=== PATIENT | male | born 1940 | race Caucasian/White ===

== ENCOUNTER 2020-01-01 18:18 | Emergency (ER) | payer OTHER ==
[2020-01-01] MEDS ORDERED: HYDROCODONE/APAP 5/325 MG TAB ONE (19:06)
--- NOTE | 2020-01-01 21:03 | ER ---
[facility] Name[facility] Flaco [facility] Age: 79 yrs Sex: Male : 1940 Arrival Date: 01/01/2020 Time: 18:38 Bed 14 Private MD: Diagnosis: Edema, unspecified-bilateral pedal edema Presentation: 12/31 18:40 Chief complaint: EMS states: "pt called reporting redness and swelling in ALTA legs. jd3 reports this is been going on for a long time, but getting worse over the last 2 days.". Coronavirus screen: At this time, the client does not indicate any symptoms associated with coronavirus-19. Ebola Screen: Patient negative for fever greater than or equal to 101.5 degrees Fahrenheit, and additional compatible Ebola Virus Disease symptoms. Initial Sepsis Screen: Does the patient meet any 2 criteria? No. Patient's initial sepsis screen is negative. Does the patient have a suspected source of infection? No. Patient's initial sepsis screen is negative. Risk Assessment: Do you want to hurt yourself or someone else? Patient reports no desire to harm self or others. Onset of symptoms was December 30, 2019. 18:40 Method Of Arrival: EMS: [facility] jd3 18:40 Acuity: ANTOLIN 3 jd3 Historical: - Allergies: 18:43 No Known Allergies; jd3 - PMHx: 18:43 Hypertension; COPD; jd3 - PSHx: 18:43 colon removal; polyps removed; hernia removed; jd3 - Immunization history:: Adult Immunizations unknown. - Social history:: Smoking status: unknown. Screenin:50 Abuse screen: Denies threats or abuse. Nutritional screening: No deficits noted. jd3 Tuberculosis screening: No symptoms or risk factors identified. Fall Risk Ambulatory Aid- None/Bed Rest/Nurse Assist (0 pts). Gait- Weak (10 pts.). Mental Status- Oriented to own ability (0 pts). Total Mg Fall Scale indicates No Risk (0-24 pts). Assessment: 18:49 General: Appears in no apparent distress. uncomfortable, Behavior is calm, cooperative, jd3 appropriate for age. Pain: Denies pain. Neuro: Level of Consciousness is awake, alert, obeys commands, Oriented to person, place, time, situation. Cardiovascular: Denies chest pain, Capillary refill < 3 seconds Patient's skin is warm and dry. Rhythm is irregular. Respiratory: Airway is patent Respiratory effort is even, unlabored, Respiratory pattern is regular, symmetrical, Denies cough, shortness of breath at rest. GI: No signs and/or symptoms were reported involving the gastrointestinal system. : No signs and/or symptoms were reported regarding the genitourinary system. EENT: No signs and/or symptoms were reported regarding the EENT system. Derm: Skin is intact, Skin is dry, Skin is normal, Skin temperature is warm. Musculoskeletal: Circulation, motion, and sensation intact. Range of motion: intact in all extremities. 19:50 Reassessment: Patient appears in no apparent distress at this time. Patient and/or jd3 family updated on plan of care and expected duration. Pain level reassessed. Patient is alert, oriented x 3, equal unlabored respirations, skin warm/dry/pink. 20:31 Reassessment: Patient appears in no apparent distress at this time. Patient and/or jd3 family updated on plan of care and expected duration. Pain level reassessed. Patient is alert, oriented x 3, equal unlabored respirations, skin warm/dry/pink. awaiting results and disposition. Vital Signs: 18:43 BP 124 / 74; Pulse 102; Resp 18 S; Temp 98.9(O); Pulse Ox 97% on R/A; Pain 0/10; jd3 19:50 BP 104 / 65; Pulse 102; Resp 17 S; Pulse Ox 96% on R/A; jd3 20:31 BP 107 / 78; Pulse 104; Resp 18 S; Pulse Ox 97% on R/A; jd3 21:54 BP 121 / 71; Pulse 94; Resp 17 S; Pulse Ox 96% on R/A; jd3 ED Course: 18:38 Patient arrived in ED. ca1 18:40 Flakito Webster RN is Primary Nurse. jd3 18:42 Triage completed. jd3 18:44 Arm band placed on. EKG completed in triage. Results shown to MD. jd3 18:45 Nick Isaacs NP is PHCP. pm1 18:45 Fredy Castellanos MD is Attending Physician. pm1 18:51 Patient has correct armband on for positive identification. Placed in gown. Bed in low jd3 position. Call light in reach. Side rails up X2. Adult w/ patient. campus monitor on. Pulse ox on. NIBP on. 20:06 Ultrasound completed. Patient tolerated well. Notified SUGAR PRESSER/RALPH piedra. sg3 21:46 Extrem Venous W Compression [place] US In Process Unspecified. EDMS 21:54 No provider procedures requiring assistance completed. Patient did not have IV access jd3 during this emergency room visit. Administered Medications: 18:56 Drug: Holmen 5 mg-325 mg 1 tabs Route: PO; jd3 19:50 Follow up: Response: No adverse reaction; RASS: Alert and Calm (0) jd3 Outcome: 21:02 Discharge ordered by MD. pm1 21:55 Discharged to home via wheelchair, with friend. jd3 21:55 Condition: stable 21:55 Discharge instructions given to patient, friend, Instructed on discharge instructions, follow up and referral plans. Demonstrated understanding of instructions, follow-up care. 21:57 Patient left the ED. jd3 22:06 Prescriptions given X Patient left prior to prescription given for Tramadol 50mg tab lp1 Q8h, x12 tablets; No number to contact patient Signatures: Dispatcher [employer] EDRI Eileen Carr RN RN lp1 Nick Isaacs NP SUGAR PRESSER pm1 Flakito Webster RN RN jd3 Ina Burns sg3 Aracely Salgado RN RN ca1
--- NOTE | 2020-01-01 21:03 | EDPHYS ---
Physician Documentation [facility] Name: Flaco Gil Age: 79 yrs Sex: Male : 1940 Arrival Date: 01/01/2020 Time: 18:38 Bed 14 Private MD: ED Physician Fredy Castellanos HPI: 12/31 19:03 This 79 yrs old Male presents to ER via EMS with complaints of Lower pm1 extermity swelling. 19:03 The patient presents with pain, that is chronic, swelling. The complaints affect the pm1 right leg and left leg. Context: resulted from an unknown cause, Worse with dependence and improved with elevating legs at night, the patient can fully bear weight, the patient is able to ambulate. Onset: The symptoms/episode began/occurred present for many years, reports worse the past few days because he has not been able to elevate his legs at night due to power issues at the house. Typically he is able to improve it on his won with soaking in epsom salts and elevating his legs. Modifying factors: The symptoms are alleviated by elevating leg, the symptoms are aggravated by having his feet down. Associated signs and symptoms: Pertinent negatives calf tenderness, fever, numbness, tingling, chest pain, shortness of breath. Treatment prior to arrival includes: no previous treatment. Severity of symptoms: in the emergency department the symptoms are actually worse. The patient has experienced similar episodes in the past, chronically. The patient has not recently seen a physician. Historical: - Allergies: 18:43 No Known Allergies; jd3 - PMHx: 18:43 Hypertension; COPD; jd3 - PSHx: 18:43 colon removal; polyps removed; hernia removed; jd3 - Immunization history:: Adult Immunizations unknown. - Social history:: Smoking status: unknown. ROS: 19:03 Constitutional: Negative for fever, chills, and weight loss, Neck: Negative for injury, pm1 pain, and swelling, Respiratory: Negative for shortness of breath, cough, wheezing, and pleuritic chest pain, Abdomen/GI: Negative for abdominal pain, nausea, vomiting, diarrhea, and constipation, Back: Negative for injury and pain. 19:03 MS/Extremity: Negative for injury and deformity, Skin: Negative for injury, rash, and discoloration, Neuro: Negative for headache, weakness, numbness, tingling, and seizure. 19:03 Cardiovascular: Positive for edema, bilateral lower extremities, Negative for palpitations. Exam: 19:03 Constitutional: This is a well developed, well nourished patient who is awake, alert, pm1 and in no acute distress. Head/Face: Normocephalic, atraumatic. 19:03 Back: No spinal tenderness. No costovertebral tenderness. Full range of motion. Skin: Warm, dry with normal turgor. Normal color with no rashes, no lesions, and no evidence of cellulitis. MS/ Extremity: Pulses equal, no cyanosis. Neurovascular intact. Full, normal range of motion. 19:03 Cardiovascular: Exam negative for acute changes, Rate: normal, Rhythm: regular, Pulses: no pulse deficits are appreciated, Edema: 2+ edema to level of left ankle, left foot, right ankle and right foot. 19:03 Respiratory: Exam negative for acute changes, the patient does not display signs of respiratory distress, Breath sounds: are clear throughout. 19:03 Neuro: Exam negative for acute changes, Orientation: is normal, Mentation: is normal, Motor: is normal. Vital Signs: 18:43 BP 124 / 74; Pulse 102; Resp 18 S; Temp 98.9(O); Pulse Ox 97% on R/A; Pain 0/10; jd3 19:50 BP 104 / 65; Pulse 102; Resp 17 S; Pulse Ox 96% on R/A; jd3 20:31 BP 107 / 78; Pulse 104; Resp 18 S; Pulse Ox 97% on R/A; jd3 21:54 BP 121 / 71; Pulse 94; Resp 17 S; Pulse Ox 96% on R/A; jd3 MDM: 18:51 Patient medically screened. pm1 21:01 Data reviewed: vital signs. Data interpreted: Pulse oximetry: on room air is 97 %. pm1 Interpretation: normal. Counseling: I had a detailed discussion with the patient and/or guardian regarding: the historical points, exam findings, and any diagnostic results supporting the discharge/admit diagnosis, the need for outpatient follow up, a family practitioner, to return to the emergency department if symptoms worsen or persist or if there are any questions or concerns that arise at home. 12/31 18:51 Order name: Extrem Venous W Compression Jaocb US pm1 Administered Medications: 18:56 Drug: Immaculata 5 mg-325 mg 1 tabs Route: PO; jd3 19:50 Follow up: Response: No adverse reaction; RASS: Alert and Calm (0) jd3 Disposition: 01/01/20 21:02 Discharged to Home. Impression: Edema, unspecified - bilateral pedal edema. - Condition is Stable. - Discharge Instructions: Lymphedema, Peripheral Edema. - Prescriptions for Tramadol 50 mg Oral Tablet - take 1 tablet by ORAL route every 8 hours as needed; 12 tablet. - Medication Reconciliation Form, Thank You Letter, Antibiotic Education, Prescription Opioid Use form. - Follow up: Emergency Department; When: As needed; Reason: Worsening of condition. Follow up: Private Physician; When: 2 - 3 days; Reason: Recheck today's complaints, Continuance of care, Re-evaluation by your physician. - Problem is new. - Symptoms have improved. Addendum: 01/03/2020 07:01 Co-signature as Attending Physician, Fredy Castellanos MD I agree with the assessment and k dr plan of care. Signatures: Dispatcher [employer] EDMS Fredy Castellanos MD MD [facility] Nick Isaacs NP BOTTOM CAGER pm1 Flakito Webster RN RN jd3 Corrections: (The following items were deleted from the chart) 12/31 21:57 21:02 01/01/2020 21:02 Discharged to Home. Impression: Edema, unspecified - bilateral jd3 pedal edema. Condition is Stable. Forms are Medication Reconciliation Form, Thank You Letter, Antibiotic Education, Prescription Opioid Use. Follow up: Emergency Department; When: As needed; Reason: Worsening of condition. Follow up: Private Physician; When: 2 - 3 days; Reason: Recheck today's complaints, Continuance of care, Re-evaluation by your physician. Problem is new. Symptoms have improved. pm1
--- NOTE | 2020-01-01 21:59 | RAD REPORT ---
EXAM DESCRIPTION: US - Extrem Venous W Compress Jacob - 01/01/2020 9:46 pm CLINICAL HISTORY: Pain;Swelling Bilateral leg edema and swelling. COMPARISON: EXT VENOUS W COMPRESSION JACOB dated 10/14/2013 TECHNIQUE: Real-time sonographic interrogation of the left and right lower extremity deep venous sys tems was performed. FINDINGS: Normal compressibility, flow augmentation, phasic flow and spontaneous flow is identified in both the left and right lower extremity deep venous systems. 3 cm left popliteal cyst. IMPRESSION: No sonographic evidence of left or right lower extremity deep venous thrombosis.
[2020-01-01 22:05] VITALS: TEMP 98.9
[2020-01-01 22:49] VITALS: BP 121/71; O2SAT 96
== END 2020-01-01 21:57 | disposition home or self-care (01) ==
LOC: ER 18:18
DX: R60.9 Edema, unspecified (principal); I10 Essential (primary) hypertension
CPT/HCPCS: 93005; 93970; 99284

== ENCOUNTER 2020-02-01 09:52 | Observation (INO) | payer OTHER ==
[2020-02-01 10:41] LABS: Absolute Lymphocytes (CBC) 1.7 K/uL (0.7-4.9); Basophils % 0.6 % (0-1.3); Hematocrit 35.4 % (39.6-49.0); Lymphocytes % 21.3 % (15.3-44.8); MPV 8.1 fL (7.6-11.3); RBC Red Blood Cell Count 3.56 M/uL (4.33-5.43)
[2020-02-01 10:43] LABS: Protime INR 1.2
[2020-02-01] MEDS ORDERED: NA CHLORIDE 0.9% 500 ML ONE (10:46)
--- NOTE | 2020-02-01 11:09 | RAD REPORT ---
EXAM DESCRIPTION: CT - Head C Spine Cap Hilton Sanchez - 02/01/2020 10:38 am CLINICAL HISTORY: Head and neck injury with chest and abdominal pain status post fall. Head and neck pain . TECHNIQUE: Computed axial tomography of the head and cervical spine was obtained Computed axial tomography of the chest, abdomen and pelvis was obtained. 100 cc Isovue-300 was given intravenously coronal and sagittal reconstruction was performed. All CT scans are performed using dose optimization technique as appropriate and may include automated exposure control or mA/KV adjustment according to patient size. COMPARISON: None FINDINGS: An intracranial bleed is not seen. The ventricles are normal in caliber. An extra-axial fl uid collection is not noted. Mild low-density areas within periventricular, deep and subcortical whit e matter likely ischemic changes secondary to small vessel disease A cervical fracture is not seen. No dislocation is seen. Ill-defined density is present within the ph arynx which may viscous secretions A mediastinal hematoma is not noted. A small to moderate bilateral pleural effusions. A lung contusio n is not seen. Paraseptal emphysema The liver, spleen, pancreas, adrenals, kidneys and bladder do not demonstrate a traumatic injury Prostate gland is enlarged. Left hip arthroplasty. Artifact from the prosthesis limits evaluation por tions of the pelvis. Cholelithiasis. Gallbladder is distended. Periaortic/caval lymphadenopathy. Lymph nodes vary in size from 1-2 centimeters. Lymph nodes are pres ent within the iliac chain. Diffuse edema is present the subcutaneous tissues. Bones have a diffusely heterogeneous and diminished density. . IMPRESSION: 1. No acute intracranial abnormality is seen 2. A cervical fracture is not visualized. If the patient continues have symptoms to suggest intracran ial/spinal cord pathology then MRI would be recommended. 3. No traumatic injury involving the chest, abdomen or pelvis is seen. 4. Mild to moderate retroperitoneal and pelvic lymphadenopathy may represent metastatic disease or ly mphoma 5. Bones have a diffusely heterogeneous and diminished density which may indicate metastatic disease or a metabolic process 6. Cholelithiasis with gallbladder distention 7. Enlargement of the prostate gland could represent hypertrophy or neoplasm. The evaluation is subop timal secondary to artifact from a left hip prosthesis
--- NOTE | 2020-02-01 11:22 | RAD REPORT ---
EXAM DESCRIPTION: Deon Single View02/01/2020 10:23 am CLINICAL HISTORY: Chest pain COMPARISON: 2016 FINDINGS: Small to moderate bilateral pleural effusions. Lungs are hyperaerated. Upper lobes are cl ear. Heart is normal size
[2020-02-01 11:25] LABS: ALT/SGPT 40 U/L (12-78); AST/SGOT 73 U/L (15-37); Albumin 2.1 g/dL (3.4-5.0); Alkaline Phosphatase 949 U/L (45-117); BUN Blood Urea Nitrogen 16 mg/dL (7-18); Bicarbonate 20 mmol/L (21-32); Bilirubin Direct 0.3 mg/dL (0-0.2); Bilirubin Total 0.7 mg/dL (0.2-1.0); Creatine Phosphokinase 159 U/L (39-308); Glucose Level 74 mg/dL (74-106); NT PRO-BNP 1704 pg/mL (<450); Potassium 4.5 mmol/L (3.5-5.1); Protein, Total 5.7 g/dL (6.4-8.2); Sodium Level 149 mmol/L (136-145); Troponin (Emerg Dept Use Only) < 0.02 ng/mL (0.0-0.045)
--- NOTE | 2020-02-01 12:10 | EDPHYS ---
Physician Documentation [facility] Name: Flaco Gil Age: 79 yrs Sex: Male : 1940 Arrival Date: 02/01/2020 Time: 09:55 Bed 4 Private MD: ED Physician Henri Waters HPI: 01/31 10:05 This 79 yrs old Male presents to ER via EMS with complaints of Found on the cp ground. 10:05 Details of fall: The patient fell from an upright position. cp 10:05 Onset: The symptoms/episode began/occurred at an unknown time. possibly 3 days ago. cp Associated injuries: The patient sustained no obvious injuries. Historical: - Allergies: 10:30 No Known Allergies; sv - PMHx: 10:29 COPD; Hypertension; sv - PSHx: 10:29 colon removal; polyps removed; hernia removed; sv - Immunization history:: Adult Immunizations unknown. - Social history:: Smoking status: . ROS: 10:10 Constitutional: Positive for poor PO intake, Negative for fever. cp 10:10 Cardiovascular: Negative for chest pain. cp 10:10 Respiratory: Negative for cough, shortness of breath, wheezing. 10:10 Abdomen/GI: Negative for abdominal pain. 10:10 Neuro: Negative for altered mental status. 10:10 All other systems are negative. Exam: 10:15 Constitutional: The patient appears in no acute distress, alert, awake, cp non-diaphoretic, non-toxic, well developed, frail. 10:15 Head/Face: Normocephalic, atraumatic. cp 10:15 Eyes: Periorbital structures: appear normal, Pupils: equal, round, and reactive to light and accomodation, Extraocular movements: intact throughout, Conjunctiva: normal, no exudate, no injection, Sclera: no appreciated abnormality, Lids and lashes: appear normal, bilaterally. 10:15 ENT: External ear(s): are unremarkable, Ear canal(s): are normal, clear, TM's: dullness, bilaterally, Nose: is normal, Mouth: Lips: dry, Oral mucosa: dry, Posterior pharynx: Airway: no evidence of obstruction, patent. 10:15 Neck: C-spine: vertebral tenderness, is not appreciated, crepitus, is not appreciated, ROM/movement: is normal, is supple, without pain, no range of motions limitations, no nuchal rigidity. 10:15 Chest/axilla: Inspection: normal, Palpation: crepitus, is not appreciated, tenderness, is not appreciated. 10:15 Cardiovascular: Rate: tachycardic, Rhythm: regular, Edema: pedal edema, that is very mild, JVD: is not appreciated. 10:15 Respiratory: the patient does not display signs of respiratory distress, Respirations: normal, no use of accessory muscles, no retractions, labored breathing, is not present, Breath sounds: are clear throughout, no decreased breath sounds, no stridor, no wheezing. 10:15 Abdomen/GI: Inspection: abdomen appears normal, Bowel sounds: active, all quadrants, Palpation: abdomen is soft and non-tender, in all quadrants, rebound tenderness, is not appreciated, voluntary guarding, is not appreciated. 10:15 Back: pain, is absent. 10:15 Neuro: Orientation: to person, place, situation, Mentation: able to follow commands, slow to respond, Motor: moves all fours, Sensation: no obvious gross deficits. Vital Signs: 09:48 BP 126 / 95; Pulse 112; Resp 18; Temp 97.5(O); Pulse Ox 98% on R/A; Weight 54.43 kg tw2 (R); Height 5 ft. 9 in. (175.26 cm); 10:07 BP 125 / 88; Pulse 104; Resp 16; Pulse Ox 95% ; sv 10:52 BP 131 / 84; Pulse 101 MON; Resp 17; Pulse Ox 96% on R/A; sv 11:29 BP 111 / 75; Pulse 97 MON; Resp 16; Pulse Ox 96% on R/A; sv 12:30 BP 131 / 83; Pulse 102; Resp 22; Pulse Ox 96% on R/A; sv 13:14 BP 124 / 86; Pulse 107; Resp 25; Pulse Ox 97% ; sv 14:09 BP 135 / 65; Pulse 88; Resp 20; Pulse Ox 96% on R/A; sv 15:00 BP 119 / 83; Pulse 100 MON; Resp 18; Temp 98; Pulse Ox 96% on R/A; sv 09:48 Body Mass Index 17.72 (54.43 kg, 175.26 cm) tw2 10:52 Sinus tachycardia sv 11:29 Sinus Rhythm sv 15:00 Sinus tachycardia sv MDM: 10:16 Patient medically screened. cp 12:05 Data reviewed: vital signs, nurses notes, lab test result(s), radiologic studies, CT cp scan, and as a result, I will admit patient. 12:05 Physician consultation: Gregg Santos was called at 12:05, was contacted at 12:05, regarding admission, to the telemetry unit. patient's condition. 01/31 10:03 Order name: Basic Metabolic Panel; Complete Time: 11:28 11 11:28 Interpretation: Normal except: NA 149; CL 111; CO2 20; GFR 88. 01/31 10: Order name: CBC with Diff; Complete Time: 11:24 01/31 11:25 Interpretation: Normal except: RBC 3.56; HGB 12.3; HCT 35.4; RDW 17.3. 01/31 10:03 Order name: LFT's; Complete Time: 11:28 01/31 11:28 Interpretation: Normal except: AST 73; ALK 949; BILID 0.3; TP 5.7; ALB 2.1; GLOB 3.6; cp A/G 0.6. 01/31 10:03 Order name: Magnesium; Complete Time: 11:28 01/31 10:03 Order name: NT PRO-BNP; Complete Time: 11:28 01/31 10:03 Order name: PT-INR; Complete Time: 11:24 01/31 10:03 Order name: Troponin (emerg Dept Use Only); Complete Time: 11:28 01/31 10:03 Order name: CK; Complete Time: 11:28 01/31 10:03 Order name: Ptt, Activated; Complete Time: 11:24 01/31 10:03 Order name: UDS; Complete Time: 14:16 cp 01/31 10:03 Order name: ETOH Level; Complete Time: 11:24 cp 01/31 10:03 Order name: Lactate; Complete Time: 11:24 cp 01/31 10:03 Order name: Procalcitonin; Complete Time: 12:00 01/31 10:03 Order name: Blood Culture Adult (2) cp 01/31 10:03 Order name: XRAY Chest (1 view); Complete Time: 11:24 01/31 11:26 Interpretation: Report review. cp 01/31 10:03 Order name: EKG; Complete Time: 10:04 cp 01/31 10:03 Order name: Cardiac monitoring; Complete Time: 10:16 cp 01/31 10:03 Order name: EKG - Nurse/Tech; Complete Time: 10:16 cp 01/31 10:03 Order name: IV Saline Lock; Complete Time: 10:30 cp 01/31 10:03 Order name: Labs collected and sent; Complete Time: 10:30 cp 01/31 10:03 Order name: O2 Per Protocol; Complete Time: 10:16 cp 01/31 10:03 Order name: O2 Sat Monitoring; Complete Time: 10:16 cp 01/31 10:03 Order name: CT Traumagram (Head C Spine CAP W Con); Complete Time: 11:24 cp 01/31 11:28 Order name: Urine Microscopic Only; Complete Time: 14:16 EDMS 01/31 12:51 Order name: Urine Dipstick--Ancillary (enter results); Complete Time: 14:16 bd 01/31 14:16 Interpretation: Normal except: UKET 4+; UBLD TRACE. cp 01/31 13:08 Order name: Diet Mech. Soft (ground); Complete Time: 13:08 sv 01/31 13:23 Order name: CREATININE WHOLE BLOOD; Complete Time: 14:16 EDMS 01/31 11:27 Order name: Urine Dipstick-Ancillary (obtain specimen); Complete Time: 12:48 cp 01/31 12:48 Order name: Wade; Complete Time: 12:48 sv Administered Medications: 10:50 Drug: NS 0.9% 500 ml Route: IV; Rate: 500 ml/hr; Site: right antecubital; tw2 12:00 Follow up: Response: No adverse reaction; IV Status: Completed infusion; IV Intake: sv 500ml 15:19 Drug: NS 0.9% 1000 ml Route: IV; Rate: 75 ml/hr; Site: right antecubital; tw2 15:20 Follow up: Response: No adverse reaction; IV Status: Infusion continued upon admission sv Disposition: 13:00 Chart complete. 02/01 06:02 Co-signature as Attending Physician, Henri Waters MD. rn Disposition: 02/01/20 12:09 Hospitalization ordered by Grgeg Santos for Observation. Preliminary diagnosis are Fall on same level from slipping, tripping and stumbling, Dehydration. - Bed requested for Telemetry/MedSurg (observation). - Status is Observation. sv - Condition is Fair. - Problem is new. - Symptoms have improved. Signatures: Dispatcher [employer] EDMS Sydnie Higuera bd Valorie Caballero RN RN sv Henri Waters MD MD rn Page, Corey, PA PA cp Gwendolyn Anguiano RN RN tw2 Corrections: (The following items were deleted from the chart) 01/31 11:28 11:28 Normal except: AST 73; ALK 949; BILID 0.3; TP 5.7; ALB 2.1; GLOB 3.6. cp cp 11:35 11:28 Urine Microscopic Only ordered. EDMS EDMS 12:48 11:52 Wade ordered. cp sv 14:47 12:09 Hospitalization Ordered by Gregg Santos for Observation. Preliminary diagnosis bd is Fall on same level from slipping, tripping and stumbling; Dehydration. Bed requested for Telemetry/MedSurg (observation). Status is Observation. Condition is Fair. Problem is new. Symptoms have improved. cp 15:31 14:47 02/01/2020 12:09 Hospitalization Ordered by Gregg Santos for Observation. sv Preliminary diagnosis is Fall on same level from slipping, tripping and stumbling; Dehydration. Bed requested for Telemetry/MedSurg (observation). Status is Observation. Condition is Fair. Problem is new. Symptoms have improved. bd 02/01 14:20 01/30 10:05 This 79 yrs old Male presents to ER via EMS with complaints of cp Found on the ground. cp
--- NOTE | 2020-02-01 12:10 | ER ---
Nurse's Notes [facility] Name: Flaco Gil Age: 79 yrs Sex: Male : 1940 Arrival Date: 02/01/2020 Time: 09:55 Bed 4 Private MD: Diagnosis: Fall on same level from slipping, tripping and stumbling;Dehydration Presentation: 01/31 09:55 Chief complaint: EMS states: called out by PD, they did a welfare check on him and sv found him laying on the ground at home, for about the past 3 days. Pt had trash and empty beer cases laying all around the house. Coronavirus screen: Client denies travel out of the [place] in the last 14 days. At this time, the client does not indicate any symptoms associated with coronavirus-19. Ebola Screen: No symptoms or risks identified at this time. 09:55 Method Of Arrival: EMS: [facility] sv 10:07 Initial Sepsis Screen: Does the patient meet any 2 criteria? HR > 90 bpm. No. Patient's sv initial sepsis screen is negative. Does the patient have a suspected source of infection? No. Patient's initial sepsis screen is negative. Risk Assessment: Do you want to hurt yourself or someone else? Patient reports no desire to harm self or others. Onset of symptoms was January 30, 2020. 10:12 Acuity: ANTOLIN 2 sv Triage Assessment: 09:55 General: Appears in no apparent distress. uncomfortable, slender, unkempt, sv malnourished, Behavior is calm, cooperative, appropriate for age. General: Pt noted to be covered in dried feces with no clothes on.. Pain: Denies pain. Neuro: Level of Consciousness is awake, alert, obeys commands, Oriented to person, place, time, situation, Moves all extremities. Full function Speech is normal, Facial symmetry appears normal. Cardiovascular: Denies chest pain, Capillary refill is > 3 seconds is sluggish in bilateral fingers toes Patient's skin is warm and dry. Pulses are palpable in right radial artery and left radial artery Rhythm is sinus tachycardia. Respiratory: Airway is patent Respiratory effort is even, unlabored, Respiratory pattern is regular, symmetrical. GI: Abdomen is flat. : Swelling noted at urinary meatus. Derm: Skin is normal, open area noted to the left cheek, scabbed area noted to the posterior right calf area with no drainage. Decubitus located on right hip(s) is stage III is draining none noted. Musculoskeletal: Range of motion: intact in all extremities, Swelling present in right foot and left foot. Historical: - Allergies: 10:30 No Known Allergies; sv - PMHx: 10:29 COPD; Hypertension; sv - PSHx: 10:29 colon removal; polyps removed; hernia removed; sv - Immunization history:: Adult Immunizations unknown. - Social history:: Smoking status: . Screenin:50 Abuse screen: Denies threats or abuse. Denies injuries from another. Nutritional sv screening: No deficits noted. Tuberculosis screening: No symptoms or risk factors identified. Fall Risk No fall in past 12 months (0 pts). No secondary diagnosis (0 pts). IV access (20 points). Ambulatory Aid- None/Bed Rest/Nurse Assist (0 pts). Gait- Normal/Bed Rest/Wheelchair (0 pts) Mental Status- Overestimates/Forgets Limitations (15 pts.). Total Mg Fall Scale indicates Low Risk Score (25-44 pts). Fall prevention measures have been instituted. Side Rails Up X 2 Placed close to Nursing Station Frequent Obs/Assesments occuring As available Patient and Family Educated on Fall Prevention Program and strategies. Assessment: 10:00 Reassessment: Bed bath given to pt from head to toe. Clean gown placed on pt. Warm sv blankets placed on him as well. 10:49 Reassessment: Patient appears in no apparent distress at this time. No changes from sv previously documented assessment. Patient and/or family updated on plan of care and expected duration. Pain level reassessed. Patient is alert, oriented x 3, equal unlabored respirations, skin warm/dry/pink. 11:47 Reassessment: Patient appears in no apparent distress at this time. Patient and/or sv family updated on plan of care and expected duration. Pain level reassessed. Patient is alert, oriented x 3, equal unlabored respirations, skin warm/dry/pink. 12:29 Reassessment: Dr Santos at the bedside. sv 12:49 Reassessment: Patient appears in no apparent distress at this time. No changes from sv previously documented assessment. Patient and/or family updated on plan of care and expected duration. Pain level reassessed. Patient is alert, oriented x 3, equal unlabored respirations, skin warm/dry/pink. 14:00 Reassessment: Patient appears in no apparent distress at this time. No changes from sv previously documented assessment. Patient and/or family updated on plan of care and expected duration. Pain level reassessed. Patient is alert, oriented x 3, equal unlabored respirations, skin warm/dry/pink. 15:00 Reassessment: Patient appears in no apparent distress at this time. No changes from sv previously documented assessment. Patient and/or family updated on plan of care and expected duration. Pain level reassessed. Patient is alert, oriented x 3, equal unlabored respirations, skin warm/dry/pink. Vital Signs: 09:48 BP 126 / 95; Pulse 112; Resp 18; Temp 97.5(O); Pulse Ox 98% on R/A; Weight 54.43 kg tw2 (R); Height 5 ft. 9 in. (175.26 cm); 10:07 BP 125 / 88; Pulse 104; Resp 16; Pulse Ox 95% ; sv 10:52 BP 131 / 84; Pulse 101 MON; Resp 17; Pulse Ox 96% on R/A; sv 11:29 BP 111 / 75; Pulse 97 MON; Resp 16; Pulse Ox 96% on R/A; sv 12:30 BP 131 / 83; Pulse 102; Resp 22; Pulse Ox 96% on R/A; sv 13:14 BP 124 / 86; Pulse 107; Resp 25; Pulse Ox 97% ; sv 14:09 BP 135 / 65; Pulse 88; Resp 20; Pulse Ox 96% on R/A; sv 15:00 BP 119 / 83; Pulse 100 MON; Resp 18; Temp 98; Pulse Ox 96% on R/A; sv 09:48 Body Mass Index 17.72 (54.43 kg, 175.26 cm) tw2 10:52 Sinus tachycardia sv 11:29 Sinus Rhythm sv 15:00 Sinus tachycardia sv ED Course: 09:55 Patient arrived in ED. aa5 09:55 Nathan Alexander PA is PHCP. cp 09:55 Henri Waters MD is Attending Physician. cp 09:55 transmission maintenance supervisor on. Pulse ox on. NIBP on. sv 09:55 Arm band placed on. tw2 10:10 First set of blood cultures drawn by mi. sv 10:12 Valorie Caballero, RN is Primary Nurse. sv 10:12 Triage completed. sv 10:15 Warm blanket given. Pillow given. Bath given. Cleaned of incontinence. Linen changed. mt 10:15 Patient has correct armband on for positive identification. Placed in gown. Bed in low sv position. Call light in reach. Side rails up X2. 10:22 contact info, [phone] or [phone]. bd 10:23 XRAY Chest (1 view) In Process Unspecified. EDMS 10:25 Second set of blood cultures drawn by me. Inserted saline lock: 20 gauge in right sv antecubital area, using aseptic technique. Blood collected. Flushed right antecubital with 5 ml normal saline. 10:[address] via stretcher. sv 10:39 CT Traumagram (Head C Spine CAP W Con) In Process Unspecified. EDMS 10:42 CT completed. Patient tolerated procedure well. Patient moved back from CT. sj 10:49 Patient moved back from [address]. sv 11:09 lemon glycerin swabs given until patient can eat or drink. mt 12:09 Gregg Santos is Hospitalizing Provider. cp 12:48 Wade cath inserted, using sterile technique, 16 Fr., by mi, balloon inflated, to sv gravity drainage, urine specimen collected. returned clear yellow urine. Patient tolerated well. 14:47 Adult Protective Services Ina [email or web address]-[phone]. bd 15:20 No provider procedures requiring assistance completed. Patient admitted, IV remains in sv place. intact. Administered Medications: 10:50 Drug: NS 0.9% 500 ml Route: IV; Rate: 500 ml/hr; Site: right antecubital; tw2 12:00 Follow up: Response: No adverse reaction; IV Status: Completed infusion; IV Intake: sv 500ml 15:19 Drug: NS 0.9% 1000 ml Route: IV; Rate: 75 ml/hr; Site: right antecubital; tw2 15:20 Follow up: Response: No adverse reaction; IV Status: Infusion continued upon admission sv Intake: 12:00 IV: 500ml; Total: 500ml. sv Outcome: 12:09 Decision to Hospitalize by Provider. cp 15:19 Admitted to [facility] accompanied by tech, via stretcher, room 205, with chart, Report sv called to Lizett DAILEY 15:19 Condition: stable 15:19 Instructed on the need for admit. 15:31 Patient left the ED. sv Signatures: Dispatcher [employer] EDMS Sydnie Higuera Stephanie RN RN Shavonne Montaño Audri RN RN aa5 Nathan Alexander PA PA cp Wise, Tara RN RN tw2 Sumanth [facility] Corrections: (The following items were deleted from the chart) 10:13 09:48 BP 126 / 95; Pulse 112bpm; Resp 18bpm; Pulse Ox 98% RA; Temp 97.5F Oral; tw2 tw2
[2020-02-01 12:55] LABS: Urine Blood TRACE (NEG); Urine Glucose NEGATIVE (NEG); Urine Protein NEGATIVE (NEG); Urine Specific Gravity 1.015 (1.005-1.030)
[2020-02-01 13:49] LABS: Barbiturates NEGATIVE (NEGATIVE); Benzodiazepines NEGATIVE (NEGATIVE); Cocaine NEGATIVE (NEGATIVE); METHAMPHETAM NEGATIVE (NEGATIVE); Methadone NEGATIVE (NEGATIVE); Opiates NEGATIVE (NEGATIVE); Phencyclidine NEGATIVE (NEGATIVE); THC Cannibis NEGATIVE (NEGATIVE)
[2020-02-01 13:55] LABS: Urine Bacteria NONE SEEN /HPF (NONE SEEN); Urine Culture Reflex Order NOT NEEDED; Urine Mucus LIGHT /HPF (NONE SEEN); Urine RBC <5 /HPF (NONE SEEN)
[2020-02-01] MEDS ORDERED: NA CHLORIDE 0.9% 1,000 ML ONE (15:29)
[2020-02-01] MEDS ORDERED: ACETAMINOPHEN 500 MG TAB PO PRN (16:05)
[2020-02-01] MEDS ORDERED: ONDANSETRON 4 MG/2 ML VIAL IV PRN (16:05)
[2020-02-01] MEDS ORDERED: ALBUTEROL 2.5 MG/3 ML NEB SOL NEB PRN (16:05)
[2020-02-01] MEDS: NACHLORIDE 0.45% 1,000 ML IV SCH (16:05)
--- NOTE | 2020-02-01 16:09 | P.HP ---
Certification for Inpatient Patient admitted to: Inpatient With expected LOS: >2 Midnights Practitioner: I am a practitioner with admitting privileges, knowledge of patient current condition, hospital course, and medical plan of care. Services: Services provided to patient in accordance with Admission requirements found in Title 42 Section 412.3 of the Code of Federal Regulations Patient History Date of Service: 02/01/20 Reason for admission: Fall History of Present Illness: 79-year-old gentleman with a history of chronic lower extremity lymphedema and COPD was brought to the emergency department because he was found on the floor at home lying in his stool and urine. Patient stated he slipped and fell and could not get up. He stated he was on the floor for about 3 day until he was found by his neighbor who did her wellness check on him. Patient denies any pain. He sustained a bruise to the right hip area. He was reporting of increased lower extremity swelling. He denied any shortness of breath or COPD flare. He was oriented to place and person but not to time. His blood work in the ED revealed hypernatremia and elevated ALP. CT chest, abdomen, and pelvis demonstrated bilateral pleural effusion and cholelithiasis with distended gallbladder. No gallbladder wall thickening to suggest cholecystitis. Patient started on IV fluids and admitted for further management. Allergies No Known Allergies Allergy (Verified 02/01/20 16:05) - Past Medical/Surgical History Diabetic: No -: Diverticulosis -: Tobacco abuse -: copd -: diverticulitis -: left hip fx -: Chronic lower extremity lymphedema -: colon resection due to diverticulitis -: hernia repair -: yolis eye lens replaced -: R ankle Fx with pins to repair -: L hip sx Psychosocial/ Personal History: . Children-2, Retired-real estate - Family History Mother -: Hypertension - Social History Alcohol use: Yes CD- Drugs: No Caffeine use: Yes Review of Systems Other: Patient denied any fever, any dysuria, or chest pain or palpitation. He denies shortness of breath. He denies abdominal pain or diarrhea or nausea or vomiting. Except as documented, all other systems reviewed and negative. Physical Examination - Physical Exam General: Oriented x2, Other (unkempt, cachetic) HEENT: Other (Dry oral mucosa.) Neck: Supple, JVD not distended Respiratory: Clear to auscultation bilaterally, Normal air movement Cardiovascular: Regular rate/rhythm, Normal S1 S2, Edema (Bilateral feet) Gastrointestinal: Normal bowel sounds, Soft and benign, Non-distended Musculoskeletal: Swelling (Bilateral feet) Integumentary: Other (Abrasion- right hip) Neurological: Normal strength at 5/5 x4 extr, Cranial nerves 3-12 intact External genitalia: Edema (penis) - Studies Laboratory Data (last 24 hrs) 02/01/20 10:25: PT 14.1 H, INR 1.20, APTT 24.8 02/01/20 10:25: WBC 8.1, Hgb 12.3 L, Hct 35.4 L, Plt Count 234 02/01/20 10:25: Sodium 149 H, Potassium 4.5, BUN 16, Creatinine 0.84, Glucose 74, Magnesium 2.0, Total Bilirubin 0.7, AST 73 H, ALT 40, Alkaline Phosphatase 949 H Assessment and Plan - Problems (Diagnosis) (1) Hypernatremia Current Visit: Yes Status: Acute (2) Asthenia Current Visit: Yes Status: Acute (3) Severe protein-calorie malnutrition Current Visit: Yes Status: Acute (4) Liver enzyme elevation Current Visit: Yes Status: Acute (5) COPD (chronic obstructive pulmonary disease) Current Visit: Yes Status: Acute (6) Chronic acquired lymphedema Current Visit: Yes Status: Acute (7) Bilateral pleural effusion Current Visit: Yes Status: Acute - Plan Admit to the medical floor. Hydrate with IV half-normal saline Monitor BMP. UA with no evidence of UTI. No indication for antibiotics at this time. Feeding as tolerated. Obtain right upper quadrant sonogram to further evaluate the distended gallbladder and a biliary tree. Consult to PT and OT Consult to social work for discharge planning. Wound care. - Advance Directives Does patient have a Living Will: No Does patient have a Durable POA for Healthcare: Yes
[2020-02-01] MEDS: ENOXAPARIN 40 MG/0.4 ML SQ SCH (17:09)
[2020-02-01 18:03] VITALS: BMI 23.6
--- NOTE | 2020-02-01 19:43 | RAD REPORT ---
EXAM DESCRIPTION: US - Liver Only - 02/01/2020 7:03 pm CLINICAL HISTORY: Distended gall bladder, elevated ALP. COMPARISON: Chest Single View dated 02/01/2020 TECHNIQUE: Sonographic evaluation of the right upper quadrant was performed as a dedicated liver ult rasound study. FINDINGS: Liver size is normal. No capsule nodularity or focal liver parenchymal lesion. Fatty infil tration is not evident. No diffuse liver parenchymal abnormality seen. Doppler evaluation shows no po rtal vein abnormality. Liver is estimated 12-13 cm in length. Spleen is 7 cm. No focal splenic abnormality seen. Cholelithiasis is present. Acute cholecystitis is not suspected. Bilateral pleural effusions are present not fully assessed on this study. IMPRESSION: No hepatomegaly or focal liver finding. No splenomegaly or focal splenic finding. Cholelithiasis.
[2020-02-01] MEDS ORDERED: INFLUENZA VACCINE (for 3y+) 0.5 ML DOSE IMVAC ONE (20:00)
[2020-02-01] MEDS ORDERED: PNEUMOCOCCAL VACCINE 0.5 ML IMVAC ONE (20:00)
[2020-02-02] MEDS: NACHLORIDE 0.45% 1,000 ML IV SCH (00:10)
[2020-02-02] MEDS ORDERED: IPRATROPIUM BROM 0.5MG/2.5ML NEB PRN (02:06)
[2020-02-02] MEDS ORDERED: ALBUTEROL 2.5 MG/3 ML NEB SOL NEB PRN (02:09)
[2020-02-02 04:25] LABS: Protime INR 1.23
[2020-02-02 05:15] LABS: Absolute Lymphocytes (CBC) 1.4 K/uL (0.7-4.9); Basophils % 0.3 % (0-1.3); Hematocrit 29.6 % (39.6-49.0); Lymphocytes % 15.7 % (15.3-44.8); MPV 9.2 fL (7.6-11.3); RBC Red Blood Cell Count 2.95 M/uL (4.33-5.43)
[2020-02-02 05:34] LABS: Albumin 1.8 g/dL (3.4-5.0); Bilirubin Total 0.4 mg/dL (0.2-1.0); Magnesium 1.9 mg/dL (1.8-2.4); Phosphorus 2.7 mg/dL (2.5-4.9); Potassium 3.9 mmol/L (3.5-5.1); Protein, Total 4.7 g/dL (6.4-8.2); Thyroid Stimulating Hormone 2.49 uIU/mL (0.360-3.740)
--- NOTE | 2020-02-02 07:17 | EKG ---
Test Date: 2020-02-01 Test Time: 09:52:24 Lab Coordinator: SHU MEASUREMENT RESULTS: Intervals: Rate: 98 DC: 194 QRSD: 58 QT: 408 QTc: 520 [place]: P: 22 DC: 194 QRS: 51 T: 194 INTERPRETIVE STATEMENTS: Sinus rhythm with occasional and consecutive premature ventricular complexes and fusion complexes Right atrial enlargement Low voltage QRS ST & T wave abnormality, consider inferolateral ischemia Prolonged QT Abnormal ECG Compared to ECG 01/01/2020 18:34:43 Fusion complex(es) now present Ventricular premature complex(es) now present Atrial abnormality now present ST (T wave) deviation now present Possible ischemia now present Prolonged QT interval now present Electronically Signed On 02-02-20 07:16:12 CLIMATOLOGY TEACHER by Eduardo Pacheco
[2020-02-02] MEDS: ENOXAPARIN 40 MG/0.4 ML SQ SCH (08:09)
[2020-02-02] MEDS ORDERED: POTASSIUM 25 MEQ EFFERV TAB PO ONE (09:00)
--- NOTE | 2020-02-02 10:56 | P.PN ---
Subjective Date of Service: 02/02/20 Chief Complaint: Fall Patient has no complain this morning. He is tolerating his meals. He denies shortness of breath. Hypernatremia has resolved. UA no evidence of UTI. Physical Examination - Vital Signs Temperature: 98.7 F Blood Pressure: 111/55 Pulse: 79 Respirations: 18 Pulse Ox (%): 95 - Physical Exam General: Alert, In no apparent distress HEENT: Mucous membr. moist/pink Respiratory: Clear to auscultation bilaterally, Normal air movement Cardiovascular: Regular rate/rhythm, Normal S1 S2, Edema (2+ bilateral pedal edema) Gastrointestinal: Normal bowel sounds, Soft and benign, Non-distended, No tenderness Musculoskeletal: No tenderness Integumentary: Other (Right hip abrasion.) Neurological: Other (Nonfocal.) - Studies Laboratory Data (last 24 hrs) 02/01/20 10:25: PT 14.1 H, INR 1.20, APTT 24.8 02/01/20 10:25: Sodium 149 H, Potassium 4.5, BUN 16, Creatinine 0.84, Glucose 74, Magnesium 2.0, Total Bilirubin 0.7, AST 73 H, ALT 40, Alkaline Phosphatase 949 H Assessment And Plan - Current Problems (Diagnosis) (1) Hypernatremia Current Visit: Yes Status: Acute (2) Asthenia Current Visit: Yes Status: Acute (3) Severe protein-calorie malnutrition Current Visit: Yes Status: Acute (4) Liver enzyme elevation Current Visit: Yes Status: Acute (5) COPD (chronic obstructive pulmonary disease) Current Visit: Yes Status: Acute (6) Chronic acquired lymphedema Current Visit: Yes Status: Acute (7) Bilateral pleural effusion Current Visit: Yes Status: Acute - Plan Discontinue IV fluid given that patient has good oral intake. Monitor BMP. No indication for antibiotics at this time. Patient is tolerating his meals PT evaluation. OT to evaluate IADLS also ADLs I am told patient lives in a poor social condition, has no significant support. I think the best option for disposition is skilled rehab and and transition to long-term care in a group home. Wound care.
[2020-02-02] MEDS: NA CHLORIDE 0.9% 1,000 ML IV SCH (16:42)
[2020-02-02] MEDS: JUVEN PACKET PO SCH (20:53)
[2020-02-02] MEDS: ENSURE ENLIVE 237 ML CAN PO SCH (20:53)
[2020-02-03 04:04] LABS: Absolute Lymphocytes (CBC) 1.4 K/uL (0.7-4.9); Basophils % 0.5 % (0-1.3); Lymphocytes % 21.4 % (15.3-44.8)
[2020-02-03 04:32] LABS: ALT/SGPT 28 U/L (12-78); AST/SGOT 48 U/L (15-37); Albumin 1.6 g/dL (3.4-5.0); Alkaline Phosphatase 756 U/L (45-117); BUN Blood Urea Nitrogen 19 mg/dL (7-18); Bicarbonate 31 mmol/L (21-32); Bilirubin Total 0.3 mg/dL (0.2-1.0); Glucose Level 123 mg/dL (74-106); Potassium 4.4 mmol/L (3.5-5.1); Protein, Total 4.3 g/dL (6.4-8.2); Sodium Level 144 mmol/L (136-145)
[2020-02-03] MEDS: MEDIHONEY 44 ML TOPICAL TUBE TOP SCH (08:59)
[2020-02-03] MEDS: JUVEN PACKET PO SCH ×2 (09:00→21:30)
[2020-02-03] MEDS: ENOXAPARIN 40 MG/0.4 ML SQ SCH (09:00)
[2020-02-03] MEDS: ENSURE ENLIVE 237 ML CAN PO SCH ×2 (09:00→21:30)
[2020-02-03] MEDS: NA CHLORIDE 0.9% 1,000 ML IV SCH ×2 (09:01→16:37)
--- NOTE | 2020-02-03 12:57 | P.PN ---
Subjective Date of Service: 02/03/20 Chief Complaint: Fall Subjective: Improving (Amy is alert and awake and responding to questions appropriately. No acute events Overnite. He is medically cleared pending acceptance to a [facility] facility.) Physical Examination - Vital Signs Temperature: 98.1 F Blood Pressure: 94/50 Pulse: 73 Respirations: 18 Pulse Ox (%): 99 - Physical Exam General: Alert, In no apparent distress, Cooperative, Disheveled HEENT: Atraumatic, Normocephalic, EOMI Neck: Supple Respiratory: Clear to auscultation bilaterally, Normal air movement Cardiovascular: Normal pulses, Regular rate/rhythm, Normal S1 S2, Other (Bilateral lower extremity pitting edema. ), Edema Gastrointestinal: Normal bowel sounds, Soft and benign, Non-distended, No tenderness Musculoskeletal: No clubbing, No swelling, No contractures, No erythema, No warmth, Swelling, Tenderness Integumentary: No rashes, No breakdown, No significant lesion, No tenderness/swelling, No erythema, No warmth, No cyanosis Neurological: Normal speech, Sensation intact, Normal affect Assessment & Plan Physician Review Additional Text: Assessment Patient is a 79-year-old male admitted to the hospital for failure to thrive. Patient was found down by concerned neighbor. He was in a pool of stool and urine and estimates that is been down for at least 2 days. He denies any loss of consciousness. As per his account, his legs have been getting progressively swollen until he could not move. Workup during this hospital stay was largely unremarkable except for evidence of bilateral lower extremity edema and small to moderate bilateral lower extremity edema. DVT was ruled out by a venous Doppler 1 month ago. There is no echocardiogram on board to assess the etiology of his falls or lower extremity edema. He has been working with physical therapy recommends [facility] facility. hog worker and case management are assisting in placement. Failure to thrive Falls Chronic lower extremity lymphedema, possible COPD PLAN: Continue telemetry monitoring Continue PT/OT while in-house Follow up 2-D Echo and BNP Continue PRN DuoNebs Continue ensure formula to increase protein-caloric intake SNF once accepted. I appreciate assistance from SW/MARCIE
[2020-02-04] MEDS ORDERED: NA CHLORIDE 0.9% 100 ML ONE (00:04)
[2020-02-04 05:28] VITALS: O2SAT 96
[2020-02-04] MEDS: NA CHLORIDE 0.9% 1,000 ML IV SCH ×2 (06:05→09:00)
[2020-02-04 08:40] VITALS: BP 94/50; TEMP 98.1
[2020-02-04] MEDS: ENOXAPARIN 40 MG/0.4 ML SQ SCH (08:40)
[2020-02-04] MEDS: ENSURE ENLIVE 237 ML CAN PO SCH (08:41)
[2020-02-04] MEDS: JUVEN PACKET PO SCH (08:41)
--- NOTE | 2020-02-04 08:41 | ECHO ---
HEIGHT: 5 ft 10 in WEIGHT: 165 lb 0 oz DATE OF STUDY: 02/03/[address]: Prince Clarisse Armstrong MD 2-DIMENSIONAL: YES M.MODE: YES DOPPLER: YES COLOR FLOW: YES TDS: YES PORTABLE: DEFINITY: BUBBLE STUDY: DIAGNOSIS: LOWER EXTREMITY EDEMA CARDIAC HISTORY: CATHERIZATION: NO SURGERY: NO PROSTHETIC VALVE: NO PACEMAKER: NO MEASUREMENTS (cm) DIASTOLIC (NORMALS) SYSTOLIC (NORMALS) IVSd 0.8 (0.6-1.2) LA Diam (1.9-4.0) LVEF 60% LVIDd 2.6 (3.5-5.7) LVIDs 1.8 (2.0-3.5) %FS 30% LVPWd 0.8 (0.6-1.2) Ao Diam (2.0-3.7) 2 DIMENSIONAL ASSESSMENT: POOR WINDOWS RIGHT ATRIUM: LEFT ATRIUM: RIGHT VENTRICLE: LEFT VENTRICLE: TRICUSPID VALVE: MITRAL VALVE: PULMONIC VALVE: AORTIC VALVE: PERICARDIAL EFFUSION: AORTIC ROOT: LEFT VENTRICULAR WALL MOTION: DOPPLER/COLOR FLOW: COMMENTS: VERY POOR WINDOWS. LEFT VENTRICULAR EJECTION FRACTION APPEARS OKAY BUT EVALUATION IS LIMITED. RECOMMEND CONTRAST STUDY. TECHNOLOGIST: SATHYA COLON
--- NOTE | 2020-02-04 08:41 | P.DS ---
Admission Date: 02/01/20 Discharge Date: 02/04/20 Disposition: TRANSFER TO SNF - REHAB Discharge Condition: GOOD Reason for Admission: Fall Brief History of Present Illness: 79-year-old gentleman with a history of chronic lower extremity lymphedema and COPD was brought to the emergency department because he was found on the floor at home lying in his stool and urine. Patient stated he slipped and fell and could not get up. He stated he was on the floor for about 3 day until he was found by his neighbor who did her wellness check on him. Patient denies any pain. He sustained a bruise to the right hip area. He was reporting of increased lower extremity swelling. He denied any shortness of breath or COPD flare. He was oriented to place and person but not to time. His blood work in the ED revealed hypernatremia and elevated ALP. CT chest, abdomen, and pelvis demonstrated bilateral pleural effusion and cholelithiasis with distended gallbladder. No gallbladder wall thickening to suggest cholecystitis. Patient started on IV fluids and admitted for further management. Hospital Course: Patient is a 79-year-old male admitted to the hospital for failure to thrive. Workup during this hospital stay was largely unremarkable except for evidence of bilateral lower extremity edema and small to moderate bilateral lower extremity edema. DVT was ruled out by a venous Doppler 1 month ago. Echocardiogram during this hospital stay was unremarkable except it was a suboptimal study with poor cardiac windows. He has been getting nutritional supplements and working with physical therapy. He has been approved for SNF. Vital Signs/Physical Exam: Temp Pulse Resp BP Pulse Ox 98.1 F 73 18 94/50 L 99 02/04/20 08:40 02/04/20 08:40 02/04/20 08:40 02/04/20 08:40 02/04/20 08:40 General: In no apparent distress, Cooperative, Cachectic, Other (physically deconditioned) HEENT: Atraumatic, Normocephalic, EOMI Neck: Supple Respiratory: Clear to auscultation bilaterally, Normal air movement Cardiovascular: No edema, Normal pulses, Regular rate/rhythm, Normal S1 S2 Gastrointestinal: Normal bowel sounds, Soft and benign, Non-distended, No tenderness Musculoskeletal: Swelling, Tenderness Neurological: Normal speech, Sensation intact, Normal affect Laboratory Data at Discharge: WBC 6.6 K/uL (4.3-10.9) D 02/03/20 03:42 Hgb 9.4 g/dL (13.6-17.9) L 02/03/20 03:42 Hct 28.0 % (39.6-49.0) L 02/03/20 03:42 Plt Count 157 K/uL (152-406) 02/03/20 03:42 PT 14.5 SECONDS (9.5-12.5) H 02/02/20 03:35 INR 1.23 02/02/20 03:35 APTT 24.8 SECONDS (24.3-36.9) 02/01/20 10:25 Sodium 144 mmol/L (136-145) 02/03/20 03:42 Potassium 4.4 mmol/L (3.5-5.1) 02/03/20 03:42 BUN 19 mg/dL (7-18) H 02/03/20 03:42 Creatinine 0.82 mg/dL (0.55-1.3) 02/03/20 03:42 Glucose 123 mg/dL (74-106) H 02/03/20 03:42 Phosphorus 2.7 mg/dL (2.5-4.9) 02/02/20 03:35 Magnesium 1.9 mg/dL (1.8-2.4) 02/02/20 03:35 Total Bilirubin 0.3 mg/dL (0.2-1.0) 02/03/20 03:42 AST 48 U/L (15-37) H 02/03/20 03:42 ALT 28 U/L (12-78) 02/03/20 03:42 Alkaline Phosphatase 756 U/L (45-117) H 02/03/20 03:42 Home Medications: Albuterol Neb [Proventil 0.083% Neb Soln] 2.5 mg NEB [id number] PRN amp 02/04/20 Ensure Enlive 237 ml PO BID can 02/04/20 Ipratropium Neb [Atrovent*] 0.5 mg NEB [id number] PRN amp 02/04/20 Edilberto [Edilberto*] 1 pkt PO BID powd.pack 02/04/20 Medihoney [Medihoney Woundcare Gel*] 0 appl TOP DAILY tube 02/04/20 Diet: Regular Followup: Azra Mcdaniels MD [Primary Care Provider] -
[2020-02-04] MEDS: MEDIHONEY 44 ML TOPICAL TUBE TOP SCH (08:42)
== END 2020-02-04 12:11 ==
LOC: ER 09:52 → ERHOLD 13:18 → INTOOBSV 13:18 → 2ND 15:19
PROVIDERS: ADMIT Internal Medicine; ATTEND Internal Medicine
DX: R62.7 Adult failure to thrive (principal); J44.9 Chronic obstructive pulmonary disease, unspecified; Z20.828 Contact with and (suspected) exposure to other viral communicable diseases; R94.31 Abnormal electrocardiogram [ECG] [EKG]; I89.0 Lymphedema, not elsewhere classified; R22.43 Localized swelling, mass and lump, lower limb, bilateral; E87.0 Hyperosmolality and hypernatremia; R53.1 Weakness; E43 Unspecified severe protein-calorie malnutrition; R74.8 Abnormal levels of other serum enzymes; J90 Pleural effusion, not elsewhere classified; Z68.1 Body mass index [BMI] 19.9 or less, adult; Z72.0 Tobacco use
CPT/HCPCS: 93005; 93306; 87040 ×2; 85025 ×3; 80048; 36415 ×2; 80320; 83735 ×2; 82550; 84100; 85610 ×2; 82565; 80076; 80307 ×8; 83605; 85730; 84443; 84484; 80053 ×2; 84145; 83880 ×2; 70450; 72125; 71260; 74177; 71045; 76705; 97116 ×5; 97161; 97530 ×6; 94640; 51702; 96360; 99285; U0002; U0003; Q9967; J1650 ×4; G0378 ×6; J7040; J7030 ×4; J2405; 81003; 81015